=== PATIENT | female | born 1960 | race Caucasian/White ===

== ENCOUNTER 2017-03-07 04:37 | Emergency (ER) | payer BC ==
[2017-03-07 04:50] VITALS: BP 111/72; PULSE 104; TEMP 99.1; BMI 23.9
[2017-03-07] MEDS ORDERED: SODIUM CHLORIDE 1,000 ML IV ONE (06:00)
[2017-03-07] MEDS ORDERED: METOCLOPRAMIDE HCL INJECTION 10 MG/2 ML VIAL IVPUSH ONE (06:01)
--- NOTE | 2017-03-07 06:04 | PDOC ---
History of Present Illness - General Chief Complaint: Nausea/Vomiting Stated Complaint: NAUSEA,VOMITING,DIARRHEA SINCE LAST EVENING Time Seen by Provider: 03/07/17 05:58 History Source: Patient Exam Limitations: No Limitations - History of Present Illness Initial Comments: 03/07/17 06:02 This is a 56-year-old female who comes in complaining of multiple episodes of nausea and vomiting since last night. Patient denies any fevers or chills. Patient denies any diarrhea. Patient denies any chest pain. Patient said she is otherwise healthy. PAST MEDICAL HISTORY: no significant history PAST SURGICAL HISTORY: no significant history FAMILY HISTORY: no pertinant history SOCIAL HISTORY: Pt lives with family and is employed. MEDICATIONS: reviewed ALLERGIES: As per nursing notes Review of Systems General: No fevers or chills, no weakness, no weight loss HEENT: No change in vision. No sore throat,. No ear pain CardioVascular: No chest pain or shortness of breath Respiratory:No cough, or wheezing. Gastrointestinal, nausea and vomiting as per history of present illness Genitourinary: No dysuria, hematuria, or frequency Musculoskeletal: No joint or muscle pain or swelling Neurologic: No headache, vertigo, dizziness or loss of consciousness Psychiatric: nor depression Skin: No rashes or easy bruising Endocrine: no increased thirst or abnormal weight change Allergic: no skin or latex allergy All other systems reviewed and normal Exam: General: Well-nourished well-developed individual, no acute distress HEENT: Throat: Normal, tonsils normal, no erythema or exudate mucous membranes are dry. Neck: Supple, no meningeal signs, no lymphadenopathy Eyes::Pupils equal reactive and round, extraocular motion intact Chest: Nontender to palpation Cardiac: S1-S2 normal, regular rate and rhythm, no murmurs rubs or gallops Respiratory: Lungs clear to auscultation bilateral Abdomen: Soft, nondistended, normal bowel sounds, nontender to palpation diffusely Extremities: Warm, dry, no cyanosis, clubbing, or edema Skin: No rashes Neuro: Alert and oriented x3, nonfocal exam, grossly intact, normal gait Psych: Normal mood and affect 03/07/17 06:52 Care of this patient transferred to workup for patient is still pending. Case discussed in detail with oncoming Emergency Physician including history, physical exam and ancillary studies. Oncoming Emergency Physician has assumed care for the patient and will complete the evaluation and treatment. Patient is aware of the plan. Pt is clinically unchanged and stable. Past History - Past Medical History Allergies/Adverse Reactions: Allergies Allergy/AdvReac Type Severity Reaction Status Date / Time No Known Allergies Allergy Verified 03/07/17 04:40 Home Medications: Ambulatory Orders NK [No Known Home Medication] 01/16/15 Cardiac Disorders: Yes (PALPITATIONS) - Suicide/Smoking/Psychosocial Hx Smoking History: Never smoked Information on smoking cessation initiated: No Hx Alcohol Use: Yes (SOCIAL) Drug/Substance Use Hx: No Substance Use Type: Alcohol *Physical Exam - Vital Signs Last Vital Signs Temp Pulse Resp BP Pulse Ox 99.1 F 104 H 18 111/72 99 03/07/17 04:38 03/07/17 04:38 03/07/17 04:38 03/07/17 04:38 03/07/17 04:38 *DC/Admit/Observation/Transfer Diagnosis at time of Disposition: Nausea & vomiting, Dehydration - Discharge Dispostion Condition at time of disposition: Stable
[2017-03-07 06:58] LABS: BASOPHIL 0.1 % (0-2.0); MCH 28.5 pg (25.7-33.7); MCHC 33.4 g/dl (32.0-36.0); MEAN CELL VOLUME 85.4 fl (80-96); NEUTROPHILS 96.9 % (42.8-82.8); PLATELET COUNT 122 K/MM3 (134-434); RDW 13.7 % (11.6-15.6); WHITE BLOOD COUNT 12.6 K/mm3 (4.0-10.0)
[2017-03-07 07:22] LABS: ALBUMIN 4.1 g/dl (3.4-5.0); ANION GAP 11 (8-16); CALCIUM 8.7 mg/dL (8.5-10.1); CO2 24 mmol/L (21-32); CREATININE 0.8 mg/dL (0.55-1.02); GLUCOSE,RANDOM 121 mg/dL (74-106); SGPT/ALT 25 U/L (12-78)
[2017-03-07 07:24] LABS: ALK PHOS 67 U/L (45-117); BILIRUBIN,TOTAL 1.4 mg/dL (0.2-1.0); TOT PROT 7.4 g/dl (6.4-8.2)
[2017-03-07 07:27] LABS: SGOT/AST 18 U/L (15-37)
--- NOTE | 2017-03-07 07:28 | PDOC ---
*Physical Exam - Vital Signs Last Vital Signs Temp Pulse Resp BP Pulse Ox 99.1 F 104 H 18 111/72 99 03/07/17 04:38 03/07/17 04:38 03/07/17 04:38 03/07/17 04:38 03/07/17 04:38 ED Treatment Course - LABORATORY CBC & Chemistry Diagram: 03/07/17 05:40 03/07/17 05:40 - ADDITIONAL ORDERS Additional order review: 03/07/17 05:40 RBC 4.95 MCV 85.4 MCHC 33.4 RDW 13.7 MPV 12.0 H Neutrophils % 96.9 H Lymphocytes % 1.3 L Monocytes % 1.7 L Eosinophils % 0.0 Basophils % 0.1 - Medications Given in the ED: ED Medications Discontinued Medications Generic Name Dose Route Start Last Admin Trade Name Freq PRN Reason Stop Dose Admin Sodium Chloride 1,000 mls @ 1,000 mls/hr 03/07/17 06:00 03/07/17 06:04 Normal Saline - IV 03/07/17 06:59 1,000 mls/hr .Q1H ONE Administration Metoclopramide HCl 10 mg 03/07/17 06:01 03/07/17 06:08 Reglan Injection - IVPUSH 03/07/17 06:02 10 mg ONCE ONE Administration Medical Decision Making - Medical Decision Making 03/07/17 07:27 pt feeling improved. tolerating po. wouldlike to go home. labs reviewed. and unremarkable. dc home. *DC/Admit/Observation/Transfer Diagnosis at time of Disposition: Nausea & vomiting, Dehydration - Discharge Dispostion Condition at time of disposition: Stable - Patient Instructions Printed Discharge Instructions: DI for Vomiting -- Adult Additional Instructions: drink plenty of fluids, and bland foods. follow up with your primary doctor as needed. return for fever, pain or any concerns.
== END 2017-03-07 07:56 | disposition home or self-care (01) ==
LOC: FER 04:37
PROC: 3E033GC Introduction of Other Therapeutic Substance into Peripheral Vein, Percutaneous Approach (ICD-10-PCS; principal; 2017-03-07)
PROC: 3E0337Z Introduction of Electrolytic and Water Balance Substance into Peripheral Vein, Percutaneous Approach (ICD-10-PCS; 2017-03-07)
DX: E86.0 Dehydration (principal); R11.2 Nausea with vomiting, unspecified
CPT/HCPCS: 36415; 80053; 85025; 99283-25

== ENCOUNTER 2017-03-09 07:24 | Emergency (ER) | payer BC ==
[2017-03-09 07:29] VITALS: TEMP 98; BMI 23.5
[2017-03-09] MEDS ORDERED: SODIUM CHLORIDE 0.9% 1000 ML INFUS.BAG IV ONE ×2 (07:43→09:19)
--- NOTE | 2017-03-09 07:48 | PDOC ---
History of Present Illness - General Chief Complaint: Palpitations Stated Complaint: PALPITATIONS Time Seen by Provider: 03/09/17 07:30 History Source: Patient Exam Limitations: No Limitations - History of Present Illness Initial Comments: 03/09/17 07:43 56 yo F with no pmhx , recently seen in ed 3 days ago for viral syndrome, n/v here today c/o palpitations. no longer having nv no f/c no abd pain. no chest pain. at work this am was drinking green tea, suddenly felt like having palpitations. no other co diarreha. syncope or sob. Past History - Past Medical History Allergies/Adverse Reactions: Allergies Allergy/AdvReac Type Severity Reaction Status Date / Time No Known Allergies Allergy Verified 03/09/17 07:25 Home Medications: Ambulatory Orders NK [No Known Home Medication] 03/09/17 Cardiac Disorders: Yes (PALPITATIONS) - Suicide/Smoking/Psychosocial Hx Smoking History: Never smoked Hx Alcohol Use: Yes Drug/Substance Use Hx: No Substance Use Type: Alcohol Review of Systems - Review of Systems Constitutional: No: See HPI, Chills, Diaphoresis HEENTM: No: Eye Pain Respiratory: No: Cough, Orthopnea Cardiac (ROS): Yes: Palpitations. No: Chest Pain, Edema ABD/GI: No: Abdominal Distended : No: Burning, Dysuria, Discharge Neurological: No: Headache, Numbness, Paresthesia All Other Systems: Reviewed and Negative *Physical Exam - Vital Signs Last Vital Signs Temp Pulse Resp BP Pulse Ox 98 F 106 H 18 168/95 98 03/09/17 07:24 03/09/17 07:24 03/09/17 07:24 03/09/17 07:24 03/09/17 07:24 - Physical Exam General Appearance: Yes: Appropriately Dressed HEENT: positive: Normal ENT Inspection Respiratory/Chest: positive: Lungs Clear, Normal Breath Sounds. negative: Respiratory Distress Cardiovascular: positive: Regular Rhythm, Regular Rate, S1, S2 Female Pelvic Exam: positive: normal external exam Gastrointestinal/Abdominal: positive: Normal Bowel Sounds, Flat, Soft. negative : Tender Integumentary: positive: Normal Color, Dry, Warm, Other (old bruise/ discoloration [place] central back. ) Neurologic: positive: Fully Oriented, Alert, Normal Mood/Affect ED Treatment Course - LABORATORY CBC & Chemistry Diagram: 03/09/17 07:45 03/09/17 07:45 Medical Decision Making - Medical Decision Making 03/09/17 07:48 56 yo F c/o palpitations after recent viral ge illness, drinking caffeine. differential dehydration electrolyte abnormality hyperthyroid. plan labs ekg tsh. hydration. 03/09/17 09:19 d/w pt regarding low platelet count, is aware, has had before. pcp aware of it. informed it will need to be followed. *DC/Admit/Observation/Transfer Diagnosis at time of Disposition: Palpitations - Discharge Dispostion Disposition: HOME Condition at time of disposition: Improved - Patient Instructions Printed Discharge Instructions: DI for Dehydration -- Adult, DI for Palpitations Additional Instructions: you should drink plenty of fluids. follow up with your regular doctor as your platelet count is low . it is 84 today. see labs attached. bring labs to your primary doctor for followup. return for bleeding. fever. persistant vomiting or any concerns. - Post Discharge Activity Forms/Work/School Notes: Back to Work
[2017-03-09 08:21] LABS: BASOPHIL 0.1 % (0-2.0); EOSINOPHIL 1.9 % (0-4.5); MCH 28.4 pg (25.7-33.7); MCHC 32.8 g/dl (32.0-36.0); MEAN CELL VOLUME 86.4 fl (80-96); MEAN PLT VOLUME 11.9 fl (7.5-11.1); NEUTROPHILS 67.5 % (42.8-82.8); PLATELET COUNT 87 K/MM3 (134-434); RDW 12.7 % (11.6-15.6); WHITE BLOOD COUNT 4.1 K/mm3 (4.0-10.8)
[2017-03-09 08:41] LABS: ALBUMIN 4.2 g/dl (3.5-5.0); ALK PHOS 56 U/L (32-92); ANION GAP 7 (8-16); BILIRUBIN,TOTAL 0.9 mg/dl (0.2-1.0); CO2 26 mmol/L (22-28); CREATININE 0.7 mg/dl (0.6-1.3); GLUCOSE,RANDOM 117 mg/dl (74-106); SGOT/AST 22 U/L (10-42); SGPT/ALT 19 U/L (10-40); TOT PROT 6.7 g/dl (6.4-8.3)
[2017-03-09 09:44] VITALS: BP 113/81; PULSE 80
[2017-03-09 10:04] LABS: THYROID STIMULATING HORMONE 1.28 uIU/ml (0.358-3.74)
--- NOTE | 2017-03-10 18:21 | EKG ---
Test Reason : Blood Pressure : / mmHG Vent. Rate : 098 BPM Atrial Rate : 098 BPM P-R Int : 148 ms QRS Dur : 086 ms QT Int : 376 ms P-R-T Axes : 067 086 053 degrees QTc Int : 480 ms POOR DATA QUALITY, INTERPRETATION MAY BE ADVERSELY AFFECTED NORMAL SINUS RHYTHM POSSIBLE LEFT ATRIAL ENLARGEMENT NONSPECIFIC ST ABNORMALITY ABNORMAL ECG NO PREVIOUS ECGS AVAILABLE REPEAT EKG IF CLINICALLY INDICATED Confirmed by SHEIKH MILTON, [place] ([id number]) on 03/10/2017 6:20:46 PM Referred By: LÁZARO BONILLA Confirmed By:HOUSTON SARABIA MD
== END 2017-03-09 09:58 | disposition home or self-care (01) ==
LOC: FER 07:24
PROC: 3E0337Z Introduction of Electrolytic and Water Balance Substance into Peripheral Vein, Percutaneous Approach (ICD-10-PCS; principal; 2017-03-09)
DX: R00.2 Palpitations (principal)
CPT/HCPCS: 36415; 80053; 84443; 84484; 85025; 93005; 99284-25

== ENCOUNTER 2018-11-17 07:06 | Day surgery (SDC) | payer BC ==
[2018-11-10 15:07] VITALS: BMI 22.9
[2018-11-17 07:29] VITALS: TEMP 98.2
[2018-11-17] MEDS ORDERED: PROPOFOL 20 ML ONE ×2 (07:56)
[2018-11-17] MEDS ORDERED: LIDOCAINE HCL/PF 2% SDV 5ML VIAL ONE (07:56)
[2018-11-17 09:26] VITALS: BP 103/55; PULSE 79
--- NOTE | 2018-11-18 13:30 | PATH ---
Surgical Pathology Report Patient Name: ASHLEY HERNANDEZ [facility]. Rec. #: [id number] /Age/Gender: 1960 (Age: 58) / F Account: [id number] Location: [facility] Taken: 11/17/2018 Received: 11/17/2018 Reported: 11/18/2018 Physicians: Karlos Spear M.D. Specimen(s) Received POLYP PROXIMAL RIGHT COLON Clinical History Rule out colon cancer Postoperative diagnosis: Diverticulosis, polyp Final Diagnosis PROXIMAL RIGHT COLON, POLYP, BIOPSY: TUBULAR ADENOMA. Electronically Signed Nuzhat Huerta M.D. Gross Description Received in formalin, labeled "polyp proximal right colon" are 2 rodriguez, irregular portions of soft tissue measuring 0.1 and 0.2 cm. in greatest dimension. The specimens are submitted in toto in one cassette. /11/17/2018 saudi11/17/2018
== END 2018-11-17 09:20 | disposition home or self-care (01) ==
LOC: FASU-ENDO 07:06
PROVIDERS: ATTEND Internal Medicine Gastroenterology
PROC: 0DBK8ZX Excision of Ascending Colon, Via Natural or Artificial Opening Endoscopic, Diagnostic (ICD-10-PCS; principal; 2018-11-17 08:26)
DX: Z12.11 Encounter for screening for malignant neoplasm of colon (principal); D12.2 Benign neoplasm of ascending colon; K57.30 Diverticulosis of large intestine without perforation or abscess without bleeding
CPT/HCPCS: 88305-TC